=== PATIENT | male | born 1965 | race African-American/Black ===

== ENCOUNTER 2021-04-14 00:07 | Emergency (ER) | payer SELFPAY ==
[~2021-04-14] VITALS: Ht 177.8 cm; Wt 78.0 kg
[2021-04-14] MEDS ORDERED: KETOROLAC 30MG/ML VIAL IM ONE (02:00)
[2021-04-14 02:45] LABS: CLARITY URINE CLEAR (CLEAR); COLOR URINE YELLOW (YELLOW); KETONES URINE 1+ (NEGATIVE); LEUKOCYTE ESTERASE URINE NEGATIVE (NEGATIVE); NITRITE URINE NEGATIVE (NEGATIVE); OCCULT BLOOD URINE NEGATIVE (NEGATIVE); PROTEIN URINE NEGATIVE (NEGATIVE); SPECIFIC GRAVITY URINE 1.015 (1.005-1.030)
[2021-04-14] MEDS ORDERED: PREDNISONE 20MG TABLET PO ONE (03:30)
[2021-04-14] MEDS ORDERED: ACETAMINOPHEN 325MG TABLET PO ONE (03:30)
[2021-04-14] MEDS ORDERED: CYCL5TAB MT (04:16)
[2021-04-14] MEDS ORDERED: IBUP-2029 MT (04:16)
[2021-04-14] MEDS ORDERED: ONDANSETRON HCL 4MG TABLET PO ONE (04:30)
[2021-04-14] MEDS ORDERED: ONDANSETRON 4MG ODT PO ONE (04:45)
[2021-04-14 04:52] VITALS: BP 118/78
== END 2021-04-14 04:53 | disposition home or self-care (01) ==
LOC: ER 00:37
DX: M54.50 Low back pain, unspecified (principal)
CPT/HCPCS: 81003; 96372; 99284; J1885; J7512; Q0162

== ENCOUNTER 2024-07-12 11:17 | Emergency (ER) | payer SELFPAY ==
[~2024-07-12] VITALS: Ht 175.3 cm; Wt 74.0 kg
[~2024-07-12 11:17] MED LIST: CYCL5TAB3 MT; IBUP-2029 MT
[2024-07-12 11:45] VITALS: BP 161/87; PULSE 65; RESP 16; TEMP 98.8; O2SAT 100
== END 2024-07-12 15:46 | disposition left against medical advice (07) ==
LOC: ER 11:17
DX: M25.569 Pain in unspecified knee (principal); Z53.21 Procedure and treatment not carried out due to patient leaving prior to being seen by health care provider